=== PATIENT | female | born 2000 | race Hispanic/Latino ===

== ENCOUNTER → 2021-02-02 15:04 | Outpatient (CLI) | payer OTHER, SELFPAY ==
--- NOTE | 2021-02-02 15:07 | DI.US.S_ITS ---
PROCEDURE: US OB <= 14 WEEKS FETUS INDICATIONS: VIABILITY DATING. OUTSIDE/PRIOR DATING DATA: Last menstrual period (LMP): 12/05/20. LMP-based estimated date of delivery (VALERI): 09/11/21. First dating scan (date and location): 02/02/21. Estimated date of delivery (VALERI) from first dating scan: 09/05/21. TECHNIQUE: Real-time scanning was performed of the fetus and maternal pelvic organs, with image documentation. Endovaginal scanning was also performed to better visualize the fetus and maternal ovaries. COMPARISON: None. FINDINGS: Embryo: Single living intrauterine fetus is present with a crown-rump length measuring 2.5 cm, 9 weeks 2 days. Yolk sac visualized. There are multiple perigestational fluid collections measuring 0.8 x 0.6 x 1.1 cm, and 0.7 x 1.1 x 0.9 cm. Heart rate: 169 beats per minute Measurement variability in dating: +/- 4 weeks by LMP, +/- 7 days by mean sac diameter (use before 6 weeks gestation if crown-rump length not able to be measured), +/- 5 days by crown-rump length (up to 8 weeks 6 days gestation), +/- 7 days by crown-rump length (up to 13 weeks 6 days gestation). Maternal organs: Ovaries unremarkable except for a presumed right-sided corpus luteum. . IMPRESSION: Single living intrauterine fetus with gestational age measuring 9 weeks and 2 days by today's ultrasound measurements corresponding to an VALERI of 09/05/21. Multiple small perigestational hemorrhages. Dictated by: Neo Wilkes M.D. on 02/02/2021 at 16:27 Approved by: Neo Wilkes M.D. on 02/02/2021 at 16:29
[2021-02-02 16:15] LABS: Add Manual Diff / Slide Review NO; Basophils Absolute Auto 0 /uL (0-100); Basophils Percent Auto 0.5 % (0-2); Eosinophils Absolute Auto 0 /uL (0-450); Eosinophils Percent Auto 0.6 % (2-4); Hematocrit 36.7 % (36-46); Hemoglobin 12.5 g/dL (12.0-16.0); Lymphocytes Absolute Auto 1500 /uL (1100-4500); Lymphocytes Percent Auto 18.1 % (25-40); Mean Corpuscular HGB Conc 34.1 % (30-36); Mean Corpuscular Hemoglobin 31.4 PG (26-34); Monocytes Absolute Auto 800 /uL (0-900); Monocytes Percent Auto 10.3 % (3-14); Neutrophils Absolute Auto 5700 /uL (1500-7000); Neutrophils Percent Auto 70.5 % (50-75); Platelet Count 198 X10^3/uL (150-400); Red Blood Cell Count 3.99 X10^6/uL (4.0-5.2); Red Cell Distribution Width 13.6 % (11.6-14.8); White Blood Cell Count 8.1 X10^3/uL (4.5-11.0)
[2021-02-02 17:23] LABS: HIV 1 & 2 Ab/Ag 4th Gen Combo NEGATIVE (NEGATIVE); Hepatitis B Surface Antigen NEGATIVE s/c (NEGATIVE)
[2021-02-02 17:36] LABS: Hep C Virus Ab w/Reflex Quant NEGATIVE s/c (NEGATIVE)
[2021-02-02 17:39] LABS: Appearance Urine UA CLEAR; Bilirubin Urine UA NEGATIVE (NEGATIVE); Color Urine UA YELLOW; Glucose Urine UA NEGATIVE (Negative); Ketones Urine UA NEGATIVE (NEGATIVE); Leukocyte Esterase Urine UA NEGATIVE (NEGATIVE); Nitrite Urine UA NEGATIVE (Negative); Occult Blood Urine UA NEGATIVE (Negative); Protein Urine UA NEGATIVE (Negative); Specific Gravity Urine UA <=1.005 (1.000-1.035); Urobilinogen Urine UA 0.2 E.U./dL (0.2)
[2021-02-03 09:31] LABS: RPR Screen Non Reactive (Non Reactive); Varicella IgG Antibody 2061 index (Immune >165)
== END ==
PROVIDERS: Referring Provider Obstetrics & Gynecology; Visit Provider Obstetrics & Gynecology
DX: O46.91 Antepartum hemorrhage, unspecified, first trimester (principal); Z3A.09 9 weeks gestation of pregnancy
CPT/HCPCS: 36415; 76801; 76817; 80055; 81003; 86787; 86803; 86850; 86900; 86901; 87086; 87389

== ENCOUNTER → 2021-02-17 17:29 | Outpatient (CLI) | payer OTHER, SELFPAY | PROVIDERS: Referring Provider Obstetrics & Gynecology; Visit Provider Obstetrics & Gynecology | DX: Z34.81 Encounter for supervision of other normal pregnancy, first trimester (principal); Z3A.11 11 weeks gestation of pregnancy; Z36.0 Encounter for antenatal screening for chromosomal anomalies | CPT/HCPCS: 36415 ==

== ENCOUNTER → 2024-10-08 14:46 | Outpatient (CLI) | payer OTHER, SELFPAY ==
[2024-10-08 16:02] LABS: Add Manual Diff / Slide Review NO; Basophils Absolute Auto 0 /uL (0-100); Basophils Percent Auto 0.6 % (0-2); Eosinophils Absolute Auto 0 /uL (0-450); Eosinophils Percent Auto 0.3 % (2-4); Hematocrit 36.7 % (36-46); Hemoglobin 12.7 g/dL (12.0-16.0); Lymphocytes Absolute Auto 900 /uL (1100-4500); Lymphocytes Percent Auto 11.1 % (25-40); Mean Corpuscular HGB Conc 34.5 % (30-36); Mean Corpuscular Hemoglobin 31.9 PG (26-34); Mean Corpuscular Volume 92.5 fL (80-100); Monocytes Absolute Auto 500 /uL (0-900); Monocytes Percent Auto 6.4 % (3-14); Neutrophils Absolute Auto 6800 /uL (1500-7000); Neutrophils Percent Auto 81.6 % (50-75); Platelet Count 208 X10^3/uL (150-400); Red Blood Cell Count 3.97 X10^6/uL (4.0-5.2); Red Cell Distribution Width 13.5 % (11.6-14.8); White Blood Cell Count 8.4 X10^3/uL (4.5-11.0)
[2024-10-08 16:30] LABS: Alanine Aminotransferase 25 IU/L (<35); Aspartate Aminotransferase 37 IU/L (14-36); BUN Creatinine Ratio 17.6 (6-22); Blood Urea Nitrogen 9 mg/dL (7-17); Estimated Glomerular Filt Rate > 60 mL/min (>60); Uric Acid 2.9 mg/dL (2.5-6.2)
[2024-10-08 16:44] LABS: Appearance Urine UA CLEAR; Bilirubin Urine UA NEGATIVE (NEGATIVE); Color Urine UA YELLOW; Glucose Urine UA NEGATIVE (Negative); Ketones Urine UA NEGATIVE (NEGATIVE); Leukocyte Esterase Urine UA NEGATIVE (NEGATIVE); Nitrite Urine UA NEGATIVE (Negative); Occult Blood Urine UA NEGATIVE (Negative); Protein Urine UA NEGATIVE (Negative); Urobilinogen Urine UA 0.2 E.U./dL (0.2)
[2024-10-08 17:03] LABS: Hepatitis B Surface Antigen NEGATIVE s/c (NEGATIVE)
[2024-10-08 17:16] LABS: Hep C Virus Ab w/Reflex Quant NEGATIVE s/c (NEGATIVE)
[2024-10-08 17:17] LABS: HIV 1 & 2 Ab/Ag 4th Gen Combo NEGATIVE (NEGATIVE)
== END ==
PROVIDERS: Referring Provider Student in an Organized Health Care Education/Training Program; Visit Provider Student in an Organized Health Care Education/Training Program
DX: Z34.80 Encounter for supervision of other normal pregnancy, unspecified trimester (principal)
CPT/HCPCS: 36415; 80055; 81003; 82565; 84450; 84460; 84520; 84550; 86787; 86803; 86850; 86900; 86901; 87086; 87389

== ENCOUNTER → 2024-10-16 06:36 | Outpatient (CLI) | payer OTHER, SELFPAY ==
--- NOTE | 2024-10-16 06:37 | DI.US.S_ITS ---
PROCEDURE: US OB >= 14 WEEKS FETUS INDICATIONS: Dating and viability, late to care OUTSIDE/PRIOR DATING DATA: Last menstrual period (LMP): 05/24/24. LMP-based estimated date of delivery (VALERI): 02/28/25. First dating scan (date and location): No prior. Estimated date of delivery (VALERI) from first dating scan: No prior. TECHNIQUE: Real-time scanning was performed of the fetus, with image documentation and biometric measurements. Endovaginal scanning: Not needed COMPARISON: None. FINDINGS: General: A single living intrauterine gestation is present. Presentation: Vertex. Placenta: Placental position is anterior , without previa. Amniotic fluid index: 13.1 cm, normal range is 5-24 cm. Single deepest vertical pocket is 3.7 cm. heart rate: 149 beats per minute. Maternal cervical canal: 3.1 cm long. Normal lower limit is 2.5 cm. biometrics: Biparietal diameter: 5.1 cm, 21 weeks 3 days Head circumference: 18.8 cm, 21 weeks 0 days Abdominal circumference: 16.3 cm, 21 weeks 2 days Femur length: 3.7 cm, 21 weeks 6 days Clinically estimated gestational age: 20 weeks 5 days Composite gestational age from present scan: 21 weeks 3 days Estimated weight and percentile: 432 g, 87th percentile Anatomic survey: Neuro: Ventricles are non-dilated at less than 10 mm. Cisterna magna is normal at 3-11 mm. Cerebellum is normal in size and morphology. Nuchal skin fold: Normal at less than 6 mm between 14-21 weeks gestational age. Face: Nose and lips, facial profile are normal. Spine: No evidence for spina bifida. Heart: 4-chambered heart is present, with normal ventricular outflow tracts. A small left ventricular echogenic focus is incidentally noted, a nonspecific appearance in the setting of no additional abnormality. Diaphragm: Diaphragm is intact. Stomach: Left-sided stomach is present. Kidneys: No hydronephrosis. Normal is less than 5 mm in 2nd trimester, less than 7 mm in 3rd trimester. Cord: 3-vessel cord has orthotopic insertion. Bladder: Normal in size. Extremities: All 4 extremities identified. IMPRESSION: Single living intrauterine gestation with current estimated gestational age 21 weeks 3 days and estimated date of delivery 02/28/25. No specific anomaly found. Normal amniotic fluid volume. We strive to produce accurate, complete, and clear reports of imaging services. To assist us in improving patient care, this report was composed using standard report templates and voice recognition software. Therefore, it may contain abnormal punctuation, insertions and/or omissions. Occasional wrong-word or sound-alike substitutions may occur. Though we review the report and make efforts to correct it, we do recommend that the report be read carefully in proper context to recognize any text inaccuracies. Dictated by: Leandro Mccurdy M.D. on 10/16/2024 at 14:40 Approved by: Leandro Mccurdy M.D. on 10/16/2024 at 14:44
== END ==
LOC: US 06:36
PROVIDERS: Referring Provider Student in an Organized Health Care Education/Training Program; Visit Provider Student in an Organized Health Care Education/Training Program
DX: Z34.82 Encounter for supervision of other normal pregnancy, second trimester (principal); Z3A.20 20 weeks gestation of pregnancy
CPT/HCPCS: 76811

== ENCOUNTER → 2024-12-08 14:38 | Outpatient (CLI) | payer OTHER, SELFPAY ==
[2024-12-08 15:10] LABS: Hematocrit 34.9 % (36-46); Hemoglobin 12.1 g/dL (12.0-16.0)
[2024-12-08 16:45] LABS: GTT (PREG) 1 Hour PP 50gm Dose 97 mg/dL (76-139)
== END ==
PROVIDERS: Referring Provider Student in an Organized Health Care Education/Training Program; Visit Provider Student in an Organized Health Care Education/Training Program
DX: Z34.92 Encounter for supervision of normal pregnancy, unspecified, second trimester (principal); Z3A.24 24 weeks gestation of pregnancy
CPT/HCPCS: 82950; 85014; 85018

== ENCOUNTER → 2024-12-22 15:22 | Outpatient (CLI) | payer OTHER, SELFPAY ==
[2024-12-22 16:51] LABS: Add Manual Diff / Slide Review NO; Hematocrit 35.2 % (36-46); Hemoglobin 12.2 g/dL (12.0-16.0); Lymphocytes Absolute Auto 1100 /uL (1100-4500); Mean Corpuscular HGB Conc 34.5 % (30-36); Mean Corpuscular Hemoglobin 31.4 PG (26-34); Mean Corpuscular Volume 90.9 fL (80-100); Platelet Count 202 X10^3/uL (150-400)
[2024-12-22 17:34] LABS: Alanine Aminotransferase 45 IU/L (<35); Albumin 3.4 g/dL (3.5-5.0); Albumin Globulin Ratio 1.1 (1.0-2.8); Alkaline Phosphatase 169 U/L (38-126); Blood Urea Nitrogen 9 mg/dL (7-17); Calcium 8.5 mg/dL (8.4-10.2); Carbon Dioxide 22 mmol/L (22-32); Chloride 104 mmol/L (98-107); Estimated Glomerular Filt Rate > 60 mL/min (>60); Globulin 3.0 g/dL (1.7-4.1); Glucose 98 mg/dL (70-99); HEMOLYSIS < 15 (0-50); Potassium 4.1 mmol/L (3.4-5.1); Sodium 132 mmol/L (137-145); Total Protein 6.4 g/dL (6.3-8.2)
== END ==
PROVIDERS: Referring Provider Student in an Organized Health Care Education/Training Program; Visit Provider Student in an Organized Health Care Education/Training Program
DX: L29.89 Other pruritus (principal)
CPT/HCPCS: 36415; 80053; 82239; 85025

== ENCOUNTER → 2024-12-29 16:10 | Outpatient (CLI) | payer OTHER, SELFPAY ==
[2024-12-29 16:40] LABS: Appearance Urine UA CLEAR; Bilirubin Urine UA NEGATIVE (NEGATIVE); Color Urine UA YELLOW; Glucose Urine UA NEGATIVE (Negative); Ketones Urine UA NEGATIVE (NEGATIVE); Leukocyte Esterase Urine UA NEGATIVE (NEGATIVE); Nitrite Urine UA NEGATIVE (Negative); Occult Blood Urine UA NEGATIVE (Negative); Protein Urine UA NEGATIVE (Negative); Specific Gravity Urine UA 1.010 (1.000-1.035); Urobilinogen Urine UA 0.2 E.U./dL (0.2)
[2024-12-29 16:52] LABS: pH Urine UA 7.5 (4.5-8.0)
[2024-12-29 17:00] LABS: Culture Indicated Urine Cult Not Indicated
== END ==
PROVIDERS: Visit Provider Student in an Organized Health Care Education/Training Program
DX: N89.8 Other specified noninflammatory disorders of vagina (principal)
CPT/HCPCS: 81001; 87086; 87210

== ENCOUNTER 2024-12-29 16:39 | Outpatient (CLI) | payer OTHER, SELFPAY ==
--- NOTE | 2024-12-29 16:42 | DI.US.S_ITS ---
PROCEDURE: US OB BIOPHYSICAL PROFILE INDICATIONS: CHOLESTASIS OUTSIDE/PRIOR DATING DATA: Last menstrual period (LMP): 05/24/2024 LMP-based estimated date of delivery (VALERI): 02/28/2025 The calculations are made using the working VALERI of 02/28/2025. TECHNIQUE: Real-time scanning was performed of the fetus for biophysical profile, with image documentation. Endovaginal scanning: Not performed COMPARISON: [facility], , OB >= 14 WEEKS FETUS, 10/16/2024, 6:51. FINDINGS: General: A single living intrauterine gestation is present. Presentation: Vertex Placenta: Placental position is anterior, without previa. Amniotic fluid index: 18.4 cm, normal range is 5-24 cm. Single deepest vertical pocket is 6.4 cm. heart rate: 173 beats per minute. Maternal cervical canal: Not well seen. Clinically estimated gestational age: 31 weeks, 2 days Biophysical profile: Tone: 2 points. Movement: 2 points. Respiration: 2 points. Largest pocket of fluid: 2 points. IMPRESSION: 1. Single live intrauterine gestation with fetus in vertex presentation. heart rate is 173 beats per minute. Normal MICHELE at 18.4 cm. 2. Normal biophysical profile score of 8/8. We strive to produce accurate, complete, and clear reports of imaging services. To assist us in improving patient care, this report was composed using standard report templates and voice recognition software. Therefore, it may contain abnormal punctuation, insertions and/or omissions. Occasional wrong-word or sound-alike substitutions may occur. Though we review the report and make efforts to correct it, we do recommend that the report be read carefully in proper context to recognize any text inaccuracies. Dictated by: Royce oCoper M.D. on 12/29/2024 at 18:00 Approved by: Royce Cooper M.D. on 12/29/2024 at 18:01
== END 2024-12-29 18:00 | disposition home or self-care (01) ==
LOC: LABOR 17:08 → OB 12-30 07:44
PROVIDERS: Referring Provider Student in an Organized Health Care Education/Training Program; Visit Provider Student in an Organized Health Care Education/Training Program
DX: O26.643 Intrahepatic cholestasis of pregnancy, third trimester (principal); O99.891 Other specified diseases and conditions complicating pregnancy; N89.8 Other specified noninflammatory disorders of vagina; Z3A.31 31 weeks gestation of pregnancy
CPT/HCPCS: 59025; 76819; 81001; 87086; 87210; G0378; G0379

== ENCOUNTER 2025-01-05 10:46 | Outpatient (CLI) | payer OTHER, SELFPAY | END 2025-01-05 11:42 | disposition home or self-care (01) | LOC: LABOR 10:54 → OB 01-06 08:16 | PROVIDERS: Referring Provider Student in an Organized Health Care Education/Training Program; Visit Provider Student in an Organized Health Care Education/Training Program | DX: O26.643 Intrahepatic cholestasis of pregnancy, third trimester (principal); Z3A.32 32 weeks gestation of pregnancy | CPT/HCPCS: 36415; 59025; 80053; 82239; G0378; G0379 ==

== ENCOUNTER → 2025-01-05 11:44 | Outpatient (CLI) | payer OTHER, SELFPAY ==
[2025-01-05 13:32] LABS: Alanine Aminotransferase 45 IU/L (<35); Albumin 3.4 g/dL (3.5-5.0); Albumin Globulin Ratio 1.1 (1.0-2.8); Alkaline Phosphatase 191 U/L (38-126); Blood Urea Nitrogen 9 mg/dL (7-17); Calcium 8.7 mg/dL (8.4-10.2); Carbon Dioxide 23 mmol/L (22-32); Chloride 104 mmol/L (98-107); Estimated Glomerular Filt Rate > 60 mL/min (>60); Globulin 3.1 g/dL (1.7-4.1); Glucose 82 mg/dL (70-99); HEMOLYSIS < 15 (0-50); Potassium 4.0 mmol/L (3.4-5.1); Sodium 134 mmol/L (137-145); Total Protein 6.5 g/dL (6.3-8.2)
== END ==
PROVIDERS: Referring Provider Student in an Organized Health Care Education/Training Program; Visit Provider Student in an Organized Health Care Education/Training Program
DX: O26.649 Intrahepatic cholestasis of pregnancy, unspecified trimester (principal)
CPT/HCPCS: 36415; 80053; 82239

== ENCOUNTER 2025-01-12 10:35 | Outpatient (CLI) | payer OTHER, SELFPAY ==
[2025-01-12 12:00] LABS: Appearance Urine UA CLEAR; Bilirubin Urine UA NEGATIVE (NEGATIVE); Color Urine UA YELLOW; Glucose Urine UA NEGATIVE (Negative); Ketones Urine UA 3+ (NEGATIVE); Leukocyte Esterase Urine UA NEGATIVE (NEGATIVE); Nitrite Urine UA NEGATIVE (Negative); Occult Blood Urine UA NEGATIVE (Negative); Protein Urine UA NEGATIVE (Negative); Specific Gravity Urine UA 1.015 (1.000-1.035); Urobilinogen Urine UA 1.0 E.U./dL (0.2)
[2025-01-12 12:02] LABS: pH Urine UA 5.5 (4.5-8.0)
[2025-01-12 12:05] LABS: Culture Indicated Urine Cult Not Indicated
== END 2025-01-12 11:53 | disposition home or self-care (01) ==
LOC: LABOR 11:06 → OB 14:20
PROVIDERS: Referring Provider Student in an Organized Health Care Education/Training Program; Visit Provider Student in an Organized Health Care Education/Training Program
DX: O26.643 Intrahepatic cholestasis of pregnancy, third trimester (principal); Z3A.33 33 weeks gestation of pregnancy
CPT/HCPCS: 59025; 81001; 87210; G0378; G0379

== ENCOUNTER → 2025-01-12 11:51 | Outpatient (CLI) | payer OTHER, SELFPAY ==
--- NOTE | 2025-01-12 12:31 | DI.US.S_ITS ---
PROCEDURE: US OB LIMITED INDICATIONS: Weekly Growth Scan OUTSIDE/PRIOR DATING DATA: The calculations are made using the working VALERI of 02/28/25. TECHNIQUE: Real-time scanning was performed of the fetus, with image documentation and biometric measurements. Biophysical profile was also obtained. Endovaginal scanning: No COMPARISON: None. FINDINGS: General: A single living intrauterine gestation is present. Presentation: Vertex Placenta: Placental position is anterior , without previa. Amniotic fluid index: 15 cm, normal range is 5-24 cm. Single deepest vertical pocket is 5.5 cm. heart rate: 141 beats per minute. Maternal cervical canal: Closed and 3.1 cm long. biometrics: Biparietal diameter: 8.3 cm, 33 weeks one day Head circumference: 29.9 cm, 33 weeks one day Abdominal circumference: 29.9 cm, 33 weeks six days Femur length: 6.5 cm, 33 weeks five days Clinically estimated gestational age: 33 weeks two days Composite gestational age from present scan: 33 weeks three days Estimated weight and percentile: 2257 g, 55th percentile Biophysical profile: Tone: 2 points. Movement: 2 points. Respiration: 2 points. Largest pocket of fluid: 2 points. Umbilical artery Doppler: Not performed IMPRESSION: Single live intrauterine with estimated weight at the 55th percentile. Symmetric growth and composite gestational age in good agreement with the clinical age. Closed cervix and normal amniotic fluid volume. Normal biophysical profile, 01/08. We strive to produce accurate, complete, and clear reports of imaging services. To assist us in improving patient care, this report was composed using standard report templates and voice recognition software. Therefore, it may contain abnormal punctuation, insertions and/or omissions. Occasional wrong-word or sound-alike substitutions may occur. Though we review the report and make efforts to correct it, we do recommend that the report be read carefully in proper context to recognize any text inaccuracies. Dictated by: Josette Puckett M.D. on 01/12/2025 at 17:01 Approved by: Josette Puckett M.D. on 01/12/2025 at 17:03
[2025-01-12 14:06] LABS: Add Manual Diff / Slide Review NO; Hematocrit 36.5 % (36-46); Hemoglobin 12.4 g/dL (12.0-16.0); Lymphocytes Absolute Auto 1200 /uL (1100-4500); Mean Corpuscular HGB Conc 33.8 % (30-36); Mean Corpuscular Hemoglobin 30.7 PG (26-34); Mean Corpuscular Volume 90.7 fL (80-100); Platelet Count 188 X10^3/uL (150-400)
[2025-01-12 14:44] LABS: Alanine Aminotransferase 45 IU/L (<35); Albumin 3.6 g/dL (3.5-5.0); Albumin Globulin Ratio 1.2 (1.0-2.8); Alkaline Phosphatase 219 U/L (38-126); Blood Urea Nitrogen 9 mg/dL (7-17); Calcium 8.8 mg/dL (8.4-10.2); Carbon Dioxide 21 mmol/L (22-32); Chloride 103 mmol/L (98-107); Estimated Glomerular Filt Rate > 60 mL/min (>60); Globulin 3.0 g/dL (1.7-4.1); Glucose 81 mg/dL (70-99); HEMOLYSIS < 15 (0-50); Potassium 4.1 mmol/L (3.4-5.1); Sodium 134 mmol/L (137-145); Total Protein 6.6 g/dL (6.3-8.2)
== END ==
LOC: US 11:53
PROVIDERS: Referring Provider Student in an Organized Health Care Education/Training Program; Visit Provider Student in an Organized Health Care Education/Training Program
DX: O26.643 Intrahepatic cholestasis of pregnancy, third trimester (principal); Z36.4 Encounter for antenatal screening for fetal growth retardation; Z3A.33 33 weeks gestation of pregnancy
CPT/HCPCS: 36415; 59025; 76815; 76819; 80053; 81001; 82239; 85025; 87210

== ENCOUNTER 2025-01-26 12:00 | Outpatient (CLI) | payer OTHER, SELFPAY ==
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
== END 2025-01-26 13:05 | disposition home or self-care (01) ==
LOC: LABOR 12:59 → OB 14:18
PROVIDERS: Referring Provider Family Medicine; Visit Provider Family Medicine
DX: O26.649 Intrahepatic cholestasis of pregnancy, unspecified trimester (principal); Z36.4 Encounter for antenatal screening for fetal growth retardation; Z3A.34 34 weeks gestation of pregnancy
CPT/HCPCS: 36415; 59025; 76815; 80053; 82239; 85025; 87653; G0378; G0379

== ENCOUNTER 2025-02-07 20:45 | Inpatient (IN) | payer OTHER, SELFPAY ==
[2025-02-07 21:37] LABS: Add Manual Diff / Slide Review NO; Hematocrit 36.4 % (36-46); Hemoglobin 12.6 g/dL (12.0-16.0); Lymphocytes Absolute Auto 1300 /uL (1100-4500); Mean Corpuscular HGB Conc 34.5 % (30-36); Mean Corpuscular Hemoglobin 31.1 PG (26-34); Mean Corpuscular Volume 90.2 fL (80-100); Platelet Count 209 X10^3/uL (150-400)
[2025-02-07 21:48] VITALS: BP 113/73
[2025-02-07 21:50] LABS: Alanine Aminotransferase 71 IU/L (<35); Albumin 3.7 g/dL (3.5-5.0); Albumin Globulin Ratio 1.1 (1.0-2.8); Alkaline Phosphatase 287 U/L (38-126); Blood Urea Nitrogen 11 mg/dL (7-17); Calcium 8.9 mg/dL (8.4-10.2); Carbon Dioxide 21 mmol/L (22-32); Chloride 104 mmol/L (98-107); Estimated Glomerular Filt Rate > 60 mL/min (>60); Globulin 3.4 g/dL (1.7-4.1); Glucose 101 mg/dL (70-99); HEMOLYSIS < 15 (0-50); Potassium 3.6 mmol/L (3.4-5.1); Sodium 133 mmol/L (137-145); Total Protein 7.1 g/dL (6.3-8.2)
[2025-02-08] MEDS: ZOLPIDEM 5 MG TABLET PO (02:33)
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
--- NOTE | 2025-02-08 08:21 | P.PCN_ITS ---
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 See pre-anesthesia evaluation for further details. ASA Class: II Labs: Hct 36.4 % (36-46) 02/07/25 21:20 Plt Count 209 X10^3/uL (150-400) 02/07/25 21:20 Medications: Current Medications Generic Name Dose Route Start Last Admin Trade Name Freq PRN Reason Stop Dose Admin Calcium Carbonate 1,000 mg 02/07/25 21:04 Calcium Carbonate 500 Mg Tab PO Q2HR PRN Dyspepsia Carboprost Tromethamine 250 mcg 02/07/25 21:04 Carboprost 250 Mcg/Ml Ampul IM Q90M PRN Bleeding Diphenhydramine HCl 25 mg 02/08/25 08:03 Diphenhydramine 50 Mg/Ml Vial IV Q10M PRN Pruritis Ephedrine Sulfate 10 mg 02/08/25 08:03 Ephedrine 50 Mg/Ml Vial IV Q5M PRN Blood pressure decrease more than 20% of baseline. Fentanyl 50 mcg 02/07/25 21:04 Fentanyl 100 Mcg/2 Ml Inj IV Q1H PRN Pain, Moderate (4-6) Tranexamic Acid 1,000 mg/ 100 mls @ 600 mls/hr 02/07/25 21:04 Sodium Chloride IV NOW PRN Bleeding Oxytocin/Lactated Ringer's 30 unit in 500 mls @ 200 mls/hr 02/07/25 21:04 Oxytocin Premix IV CONT PRN Bleeding Protocol FENT 2MCG/ML BUPIV 0.125% EPI 200 mcg in 100 mls @ 6 mls/hr 02/08/25 08:15 Fentanyl/Bupiv/Ns 2mcg/Ml - 0.125% EPIDURAL CONT ANA LAURA Lidocaine HCl 20 ml 02/07/25 21:04 Lidocaine 1% 20 Ml INJ INTRA-OP PRN Post Delivery Methylergonovine Maleate 0.2 mg 02/07/25 21:04 Methylergonovine 0.2 Mg/Ml Vial IM NOW PRN Bleeding Methylergonovine Maleate 0.2 mg 02/07/25 21:04 Methylergonovine 0.2 Mg Tablet PO Q6HR PRN Heavy Bleeding Metoclopramide HCl 10 mg 02/08/25 08:04 Metoclopramide 10 Mg/2 Ml Inj IV 02/09/25 08:04 Q4H PRN Nausea Mineral Oil 30 ml 02/07/25 21:04 Mineral Oil 30 Ml Udc TOP PRN PRN Version Misoprostol 400 mcg 02/07/25 21:04 Misoprostol 200 Mcg Tablet SL NOW PRN Bleeding Misoprostol 800 mcg 02/07/25 21:04 Misoprostol 200 Mcg Tablet AR NOW PRN Bleeding Misoprostol 25 mcg 02/07/25 21:04 Misoprostol 25 Mcg Tablet VAG Q4H PRN cervical ripening Misoprostol 25 mcg 02/07/25 22:15 02/07/25 22:15 Misoprostol 25 Mcg Tablet PO 25 mcg QID ANA LAURA Administration Misoprostol 50 mcg 02/08/25 02:15 02/08/25 02:33 Misoprostol 25 Mcg Tablet PO 50 mcg Q4H ANA LAURA Administration Nalbuphine HCl 2.5 mg 02/08/25 08:03 Nalbuphine 20 Mg/Ml Ampul IV Q10M PRN Pruritis Naloxone HCl 0.2 mg 02/07/25 21:04 Naloxone 0.4 Mg/Ml Vial IV Q2MIN PRN Opiate Reversal Ondansetron HCl 4 mg 02/07/25 21:04 Ondansetron 4 Mg/2 Ml Inj IV Q4HR PRN Nausea And Vomiting Ondansetron HCl 4 mg 02/08/25 08:04 Ondansetron 4 Mg/2 Ml Inj IV 02/09/25 08:04 Q6HR PRN Nausea Oxytocin 10 unit 02/07/25 21:04 Oxytocin 10 Unit/Ml Vial IM NOW PRN Bleeding Zolpidem Tartrate 5 mg 02/07/25 22:23 02/08/25 02:33 Zolpidem 5 Mg Tablet PO 5 mg BEDTIME PRN Administration Sleep Allergies: Allergies Allergy/AdvReac Type Severity Reaction Status Date / Time No Known Drug Allergies Allergy Verified 02/02/25 10:37 Procedure Insertion date: 02/08/25 Insertion time: 07:11 Prep/Local: 1% lidocaine (Chloraprep) Interspace: L3-4 Patient position: sitting Needle: 18 gauge Hustead Loss of resistance with: saline RG at (cm): 5 (4.75) Catheter placed at SKIN (cm): 13 (12.5) Catheter in SPACE (cm): 8 Insertion: No CSF, No Blood, No Paresthesia with insertion, No Paresthesia with injection and No Test dose reaction Initial Medications TEST DOSE time: 07:13 TEST DOSE: 1.5% lidocaine with epinephrine 1:200k (mL): 3 BOLUS DOSE time: 07:14 BOLUS DOSE (mL): 2 BOLUS DOSE med: other (Same as test dose) Infusion INFUSION: 0.125% bupivacaine and with fentanyl 2 mcg/mL Initial rate (mL/hr): 8 Subsequent interventions: No dural puncture due to hx 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 Epidural infusion started at 07:22. Pt reports pain 8-9/10 before epidural placement and unable to feel contractions after placement. Able to move BLE. Jarvis Post-procedure Anesthesia date START: 02/08/25 Anesthesia time START: 07:04 Anesthesia date END: 02/08/25 Anesthesia time END: 09:28 Post-procedure Anesthesia Assessment: Yes CV function: HR/BP stable, Yes Resp function: RR/sat/airway adequate, Yes Post-op hydration adequate, Yes Pain control adequate, Yes Nausea & vomiting absent, Yes Temperature > 36 C, Yes Mental status appropriate and No Anesthesia complications
[2025-02-08] MEDS: OXYTOCIN PREMIX 30 UNIT/500 ML PLAST..BAG IV (08:45)
[2025-02-08] MEDS: LACTATED RINGERS 1,000 ML 100 ML IV (08:47)
[2025-02-08] MEDS: OXYTOCIN PREMIX 30 UNIT/500 ML PLAST..BAG 95 UNIT IV (09:34)
--- NOTE | 2025-02-08 09:47 | PM.OBPRVD ---
Events: Labor Induction Labor & Delivery Delivery date: 02/08/25 Delivery Time: : Intrapartal Events: None Cervical ripening method: per misoprostal protocol Induction method: AROM Delivery augmentation: pitocin Delivery monitor: external FHT Route of delivery: L&D Laceration Description: Perineal - 1st Degree Estimated blood loss (mL): 300 Anesthesia Type: Epidural Narrative: The patient progressed to C/C/+2 with pitocin augmentation and epidural anesthesia. After approximately 4 sets of maternal pushing efforts, the delivered in OA position and restituted BRITTNEY. The anterior shoulder delivered with gentle downward pressure. The posterior shoulder and rest of body delivered with ease. There was a loose nuchal cord. The cord was doubly clamped and cut after a 3 min delay with the infant handed place on maternal abdomen. The placenta delivered spontaneously and was intact with a 3-vessel cord. The fundus was noted to be firm with bimanual massage and pitocin. Inspection of the cervix, vagina, and perineum was notable for a 1st degree peineal laceration that was hemostatic. The patient tolerated delivery well and remained in the labor room with the infant at the bedside. Plan for aftercare: Routine care
[2025-02-08] MEDS: DERMOPLAST SPRAY 20% 60 ML 1 SPRAY TOP (12:02)
[2025-02-08] MEDS: ACETAMINOPHEN 325 MG TABLET 650 MG PO ×2 (15:56→22:12)
[2025-02-08] MEDS: IBUPROFEN 600 MG TABLET PO ×2 (15:56→22:11)
[2025-02-08] MEDS: DOCUSATE 100 MG CAPSULE PO (22:12)
[2025-02-09] MEDS: IBUPROFEN 600 MG TABLET PO (06:36)
[2025-02-09] MEDS: ACETAMINOPHEN 325 MG TABLET 650 MG PO (06:37)
--- NOTE | 2025-02-09 07:28 | PM.OBDS.1 ---
Discharge Providers Provider Date of admission: 02/07/25 20:45 Discharge Date: 02/09/25 Primary care physician: Ally OHLDER Provider Consults: 02/07/25 21:04 Consult to Anesthesiology Urgent Comment: Consulting Provider: Anesthesiologist Reason for consultation: Epidural 02/08/25 11:10 Consult to Contract Implementation Analyst Routine Comment: Discharge provider: Padmini Ugalde MD Summary Hospital Course Date Patient Seen: 02/09/25 Diagnoses: Cholestasis of Hospital Course: This is a 24 yo G5 now P2 who presented at 37w0d for IOL for cholestasis of . She delivered via at 37w1d. Labor and delivery uncomplicated. She is formula feeding. Bleeding is well controlled. Pain minimal. Ambulating without difficulty. Peripartum Data Infant Delivery Method: Natural Vaginal Laceration Description: Perineal - 1st Degree complications: none Status at Discharge Cognitive/behavioral status at discharge: oriented Functional status at discharge: independent ambulation Overall status at discharge: patient is back to baseline Time Spent with Patient Time attestation: Total time spent providing and/or coordinating discharge services: 30 minutes Time spent: Greater than 30 minutes Objective Labs 02/07/25 21:20 02/07/25 21:20 Exam Narrative Exam Narrative: NAD, resting comfortably in bed Discharge Plan Discharge Plan Patient Disposition: Home Discharge orders & Medications Prescriptions: New acetaminophen 325 mg Tablet 650 mg PO Q6H PRN (Reason: Pain, Mild (1-3)) Qty: 60 0RF docusate sodium 100 mg Capsule 100 mg PO DAILY Qty: 60 0RF ibuprofen 600 mg Tablet 600 mg PO Q6H Qty: 60 0RF Continued ursodiol 300 mg capsule 300 mg PO TID Qty: 90 3RF prenat.vits,jin,[id number] Tablet 1 tab PO DAILY Follow up/Referrals: Provider,Ally HOLDER [Primary Care Provider, Family Practice] Visit Report/Discharge Packet Stand Alone Forms: Patient Portal/API, Stroke Signs & Symptoms Discharge Data Primary Care Provider: Ally Jennings
[2025-02-09] MEDS: PRENATAL VIT,CALC/IRON/FOLIC 1 TABLET 1 TAB PO (10:28)
[2025-02-09] MEDS: DOCUSATE 100 MG CAPSULE PO (10:28)
[2025-02-09 10:50] VITALS: BP 123/71; PULSE 83; RESP 15; TEMP 36.4
== END 2025-02-09 11:05 | disposition home or self-care (01) | DRG 807 ==
PROVIDERS: Admitting Provider Student in an Organized Health Care Education/Training Program; Referring Provider Student in an Organized Health Care Education/Training Program; Visit Provider Student in an Organized Health Care Education/Training Program
DX: O26.643 Intrahepatic cholestasis of pregnancy, third trimester (principal); Z37.0 Single live birth; Z3A.37 37 weeks gestation of pregnancy; Z98.2 Presence of cerebrospinal fluid drainage device
CPT/HCPCS: 36415; 59050; 59200; 80053; 85025; 86850; 86900; 86901; A9270; G0379; J2590